=== PATIENT | female | born 1985 | race Caucasian/White ===

== ENCOUNTER 2016-10-25 08:39 | Day surgery (SDC) | payer MEDICAID ==
[2016-10-25] MEDS ORDERED: PROPOFOL/EMULSION 500 MG/50 ML BOTTLE IV ONE (09:05)
[2016-10-25] MEDS ORDERED: LIDOCAINE 2% 5 ML SDV ONE (09:05)
[2016-10-25] MEDS ORDERED: MIDAZOLAM 2 MG/2 ML VIAL ONE (09:05)
[2016-10-25] MEDS ORDERED: LR 1,000 ML IV ONE (09:22)
[2016-10-25] MEDS ORDERED: LIDOCAINE 1% 2 ML INJ ID PRN (09:22)
--- NOTE | 2016-10-25 09:28 | PDANEPAE ---
ANE History of Present Illness egd ANE Past Medical History - Cardiovascular History Hx Hypertension: No Hx Arrhythmias: No Hx Chest Pain: No Hx Coronary Artery / Peripheral Vascular Disease: No Hx CHF / Valvular Disease: No Hx Palpitations: No - Pulmonary History Hx COPD: No Hx Asthma/Reactive Airway Disease: No Hx Recent Upper Respiratory Infection: No Hx Oxygen in Use at Home: No - Endocrine History Hx Diabetes: No - Renal History Hx Renal Disorders: No - Liver History Hx Hepatic Disorders: No ANE Review of Systems - Exercise capacity METS (RN): 4 METS ANE Patient History - Allergies Allergies/Adverse Reactions: No Known Allergies Allergy (Unverified 10/25/16 09:27) - NPO status NPO Since - Liquids (Date): 10/24/16 NPO Since - Liquids (Time): 23:55 NPO Since - Solids (Date): 10/24/16 NPO Since - Solids (Time): 21:30 - Anes Hx Anes Hx: no prior problems ANE Labs/Vital Signs - Vital Signs Blood Pressure: 117/85 Heart Rate: 62 Respiratory Rate: 16 O2 Sat (%): 96 Height: 180.34 cm Weight: 71.214 kg ANE Physical Exam - Airway Mallampati Score: Class 2 Mouth exam: normal dental/mouth exam - Pulmonary Pulmonary: no respiratory distress - Cardiovascular Cardiovascular: regular rate and rhythym - ASA Status ASA Status: I ANE Anesthesia Plan Anesthesia Plan: GA with mask, MAC
--- NOTE | 2016-10-25 09:31 | PDGENHP ---
History & Physical Chief Complaint: abd pain, dysphagia History of Present Illness: abd pain, dysphagia Pertinent Past, Social, Family History: none Relevant Physical Exam: NAD. RRR. CTAB. S/nt/nd
[2016-10-25] MEDS ORDERED: fentaNYL 100 MCG/2 ML INJ IVP PRN (09:38)
[2016-10-25] MEDS ORDERED: NALOXONE HCL 0.4 MG/ML INJ IVP PRN (09:38)
[2016-10-25] MEDS ORDERED: ALBUTEROL 3 ML DEYVIAL IH PRN (09:38)
[2016-10-25] MEDS ORDERED: MEPERIDINE 25 MG/ML SYR IVP PRN (09:38)
[2016-10-25] MEDS ORDERED: LR 500 ML IV PRN (09:38)
--- NOTE | 2016-10-25 09:48 | POSTANESTH ---
Post Anesthetic Evaluation Cardiovascular Status: Normal, Stable Respiratory Status: Normal, Stable Level of Consciousness/Mental Status: Mildly Sleepy, Arousable Pain Control: Adequate, Prn Tx Ordered Nausea/Vomiting Control: Adequate, Prn Tx Ordered Complications Possibly Related to Anesthesia: None Noted
[2016-10-25 10:08] VITALS: PULSE 51
[2016-10-25 10:25] VITALS: TEMP 97.5
[2016-10-25 10:43] VITALS: RESP 12
[2016-10-25 11:34] VITALS: BP 101/73; O2SAT 98
--- NOTE | 2016-10-25 14:00 | GPN ---
[f rep st] PROCEDURE NOTE DATE OF PROCEDURE: 10/25/2016 PROCEDURE: Esophagogastroduodenoscopy with dilation and biopsies. INDICATION: Left upper quadrant abdominal pain and dysphagia. CONSENT: Informed consent was obtained from the patient after an explanation of risks, benefits, an d alternatives to the procedure. MEDICATIONS GIVEN: Propofol per anesthesia. SEDATION: Per Anesthesia. COMPLICATIONS: None. DESCRIPTION OF EXAMINATION: After adequate sedation was achieved, the forward-viewing endoscope was advanced under direct vision through the mouth, oropharynx, and as far as the second portion of the duodenum. Retroflexion was performed in the stomach. The patient's tolerance of the procedure was good and views were good throughout. FINDINGS: 1. Esophagus: Normal-appearing esophageal mucosa with no obvious stigmata of EOE and no evidence o f stricture or ring. Random biopsies were taken from the middle third of the esophagus to rule out eosinophilic esophagitis, and dilation was performed with a 20 mm balloon in the distal esophagus/GE junction, mid esophagus, and proximal esophagus, and the balloon was able to easily be brought out through the upper esophageal sphincter. No significant mucosal tear or effect was seen. 2. Stomach: Mild gastritis characterized by erythema and congestion was seen in the stomach. Biop sies were taken from the antrum and body to assess for H pylori. 3. Duodenum: The duodenum was normal in the bulb and second portion. Multiple biopsies were taken from the second portion of the duodenum and the duodenal bulb to rule out celiac disease. IMPRESSION: No obvious cause of dysphagia or abdominal pain was seen, although there was mild gastr itis and multiple biopsies were taken. RECOMMENDATIONS: 1. Await biopsy results. 2. Regular diet. 3. Continue current medications. 4. Follow up with Jazmyne Medina in the [facility] in the next 1-2 months. /[id number]/MODL
== END 2016-10-25 11:31 | disposition home or self-care (01) ==
LOC: FSGY 08:39
PROVIDERS: ATTEND Internal Medicine
DX: K29.70 Gastritis, unspecified, without bleeding (principal); R10.12 Left upper quadrant pain
CPT/HCPCS: 43239; 43249; C1726; J2250; J2704